=== PATIENT | male | born 1975 | race Caucasian/White ===

== ENCOUNTER 2024-08-24 04:47 | Emergency (ER) | payer SELFPAY ==
[~2024-08-24] VITALS: Ht 162.6 cm; Wt 70.0 kg
[2024-08-24 05:18] LABS: BASOPHILS 0.5 % (0-2); EOSINOPHILS 2.1 % (0-6); HEMATOCRIT 48.2 % (35.0-50.0); HEMOGLOBIN 17.2 g/dL (12.0-18.0); LYMPHOCYTES 35.3 % (24-44); MCH 30.4 (27-36); MCHC 35.6 g/dl (30-36); MCV 85.3 fl (81-99); MONOCYTES 7.8 % (0-12); NEUTROPHILS 54.3 % (39-80); PLATELET COUNT 279 K/uL (140-440); RBC 5.65 M/ul (4.3-5.7)
[2024-08-24 05:36] LABS: ALBUMIN 3.8 g/dL (3.4-5.0); ALBUMIN/GLOBULIN RATIO 1.23 (1.1-2.4); ANION GAP 10.6 (7-21); BILIRUBIN, TOTAL 0.5 mg/dL (0.2-1.0); BUN/CREATININE RATIO 21.51 (6.0-28.6); CALCIUM 8.6 mg/dL (8.5-10.1); CREATININE, SERUM 0.79 mg/dL (0.70-1.30); MAGNESIUM 1.9 mg/dL (1.8-2.4); POTASSIUM 3.6 mmol/L (3.5-5.1); PROTEIN, TOTAL 6.9 g/dL (6.4-8.2)
[2024-08-24 06:59] VITALS: BP 137/93
--- NOTE | 2024-08-24 12:45 | EKG ---
[facility] [address] [place], [place] [address] Signed Normal sinus rhythm Normal ECG No previous ECGs available Confirmed by Rodolfo Rico DO ([id number]) on 08/24/2024 12:45:21 PM Electronically Signed By: RODOLFO RICO DO 08/24/24 1245 PATIENT NAME: SPENCER TOBIAS STANISLAW Electrocardiogram DATE OF : 75 PHYSICIAN: RODOLFO RICO DO REPORT #: [id number] REPORT IS CONFIDENTIAL AND NOT TO BE RELEASED WITHOUT AUTHORIZATION
== END 2024-08-24 07:00 | disposition home or self-care (01) ==
LOC: ED 04:47
PROVIDERS: Family Medicine
DX: R07.89 Other chest pain (principal); I10 Essential (primary) hypertension
CPT/HCPCS: 36415; 71045; 80053; 83735; 84484; 85025; 93005; 93010; 99285-25